=== PATIENT | female | born 1960 | race Caucasian/White ===

== ENCOUNTER 2021-11-05 18:39 | Inpatient (IN) | payer OTHER ==
[~2021-11-05] VITALS: Ht 168 cm; Wt 77.1 kg
[~2021-11-05 18:39] MED LIST changes: -AZIT250; -FLUTICASONE-SA1 EAC1 INH; -GLIP5 PO; -METFORMIN HCL500 M3 PO; -NICOTINE1 EAC1 TOP; -PRED20 PO; -Prednisone10 MG PO
[2021-11-05 20:29] LABS: Influenza A, PCR NEGATIVE (NEGATIVE); Influenza B, PCR NEGATIVE (NEGATIVE); Resp Syncytial Virus, PCR NEGATIVE (NEGATIVE); SARS-Cov-2 (COVID-19) PCR, MMC NEGATIVE (NEGATIVE)
[2021-11-05] MEDS ORDERED: PRED20 PO ×2 (21:12)
[2021-11-05] MEDS ORDERED: Ventolin/Prove6.7 GM INH ×2 (21:13)
[2021-11-05] MEDS ORDERED: AZIT250 ×2 (21:13)
[2021-11-05] MEDS ORDERED: METFORMIN HCL500 M3 PO ×2 (21:13)
[2021-11-06 04:35] LABS: BASOPHILS ABSOLUTE AUTO 0.03 K/mm3 (0.00-0.23); BASOPHILS PERCENT AUTO 1 % (0-2); EOSINOPHILS PERCENT AUTO 0 % (0-6); Hemoglobin 13.3 g/dL (11.5-16.0); Mean Corpuscular HGB 31.2 pg (26.0-34.0); Mean Corpuscular HGB Conc 32.4 g/dL (31.5-36.5); Mean Corpuscular Volume 96 fL (80-100); Mean Platelet Volume 10.7 fL (9.1-12.4); Platelet Count 202 K/mm3 (150-400); RDW Coefficient Variation 11.9 % (11.7-14.2); Red Blood Cell Count 4.26 M/mm3 (3.80-5.20); White Blood Cell Count 5.52 K/mm3 (4.00-11.30)
[2021-11-06 04:45] LABS: IMMATURE GRAN ABSOLUTE AUTO 0.05 K/mm3 (0.00-0.10); IMMATURE GRAN PERCENT AUTO 1 % (0-1); LYMPHOCYTES ABSOLUTE AUTO 1.08 K/mm3 (0.84-5.20); LYMPHOCYTES PERCENT AUTO 20 % (21-46); MONOCYTES ABSOLUTE AUTO 0.09 K/mm3 (0.16-1.47); MONOCYTES PERCENT AUTO 2 % (4-13); NEUTROPHILS ABSOLUTE AUTO 4.27 K/mm3 (1.96-9.15); NEUTROPHILS PERCENT AUTO 77 % (41-73)
[2021-11-06 05:10] LABS: Alanine Aminotransfer (ALT/SGP 30 U/L (12-78); Albumin, Blood 3.5 g/dL (3.4-5.0); Alk Phos 82 U/L (50-136); Anion Gap 4 mmol/L (6-16); Aspartate Aminotrans (AST/SGOT 18 U/L (12-37); Bilirubin, Total 0.3 mg/dL (0.1-1.0); Blood Urea Nitrogen 27 mg/dL (8-24); Bun/Creatinine Ratio 48.3 (12.0-20.0); CO2, Blood 38 mmol/L (21-32); Calcium, Blood 9.4 mg/dL (8.5-10.1); Chloride, Blood 96 mmol/L (98-108); Creatinine, Blood 0.56 mg/dL (0.40-1.00); Globulin, Blood 3.4 g/dL (2.2-4.0); Glomerular Filtration Rate >60 (60-); Glucose, Blood 342 mg/dL (70-99); Potassium, Blood 5.1 mmol/L (3.5-5.5); Sodium, Blood 138 mmol/L (136-145); Total Protein, Blood 6.9 g/dL (6.4-8.2)
--- NOTE | 2021-11-06 06:56 | NUR ---
SHIFT SUMMARY S/P COPD EXACERBATION, A/O X4, VSS, REPORTS SOME IMPROVEMENT TO SOB AT REST BUT INCREASED SOB c AMBULATION, UNABLE TO GET TO RESTROOM SO SHE USED BSC DUE TO SOB WHEN UP. NO ACUTE EVENTS THIS SHIFT. CALL LIGHT IN REACH, WILL CTM AND REPORT TO DAY RN.
--- NOTE | 2021-11-06 15:28 | NUR ---
SHIFT SUMMARY: COPD EXHACERBATION PATIENT IS ALERT AND ORIENTED X4. PATIENT IS ON 3L NC OF OXYGEN RIGHT NOW WITH >88% OXYGEN SATS. PATIENT HAS EXPIRATORY WHEEZES AND IS USING ACCESSORY MUSCLES. ENCOURAGING PATIENT TO USE INCENTIVE SPIROMETER AND FLUTTER VALVE EVERY HOUR WHILE AWAKE. PATIENT BECOMES SOB WITH MOVEMENT AND IF TALKING FOR A LONG PERIOD OF TIME. ALSO ENCOURAGING PATIENT TO TAKE DEEP BREATHS IN BETWEEN BITES AND TALKING. OTHERWISE PATIENT IS VOIDING AND TOLERATING PO. CALLS APPROPRIATELY. CALL LIGHT WITHIN REACH. THE PLAN IS TO CONTINUE RECIEVING RT THERAPY AND IV STERIODS TO DECREASE HER WORK OF BREATHING. ALSO TO ENCOURAGE INCENTIVE SPIROMETER AND FLUTTER.
--- NOTE | 2021-11-07 07:31 | NUR ---
SHIFT SUMMARY S/P COPD EXACERBATION, A/O X4, VSS, TOLERATING DIET, AMBULATES TO BATHROOM c PITSTOP CARE HOME THERE D/T SOB c EXERTION, MARKED INCREASED WORK OF BREATHING ON EXHALATION BUT MINIMAL SOB @ REST, AUDIBLE WHEEZES PREDOMINATEL ON EXHALATION. NO ACUTE EVENTS THIS SHIFT. CALL LIGHT IN REACH, REPORT GIVEN TO DAY RN.
--- NOTE | 2021-11-07 16:54 | NUR ---
SUMMARY: NO CHANGE TODAY. VSS, A/O. PT CONTINUES TO HAVE SOB ON EXERTION AND WHEEZING, PRN AND SCHEDULED ALBUTEROL GIVEN, CURRENTLY USING 3L O2, OXIMETRY IN PLACE. PT REPORTS TRYING TO COUGH UP MUCUS, ABLE TO SHOWER INDEPENDENTLY TODAY. CBG 420 TONIGHT, 5 UNITS OF HUMALOG GIVEN AND 1000MG OF METFORMIN AND DR. BAUTISTA NOTIFIED. NO NEW ORDERS AT THIS TIME. NO SAFETY CONCERNS, WILL CTM AND REPORT TO CARLOS CHILDS.
[2021-11-08 04:02] LABS: BASOPHILS ABSOLUTE AUTO 0.08 K/mm3 (0.00-0.23); BASOPHILS PERCENT AUTO 1 % (0-2); EOSINOPHILS PERCENT AUTO 0 % (0-6); IMMATURE GRAN PERCENT AUTO 4 % (0-1); LYMPHOCYTES ABSOLUTE AUTO 1.84 K/mm3 (0.84-5.20); LYMPHOCYTES PERCENT AUTO 17 % (21-46); MONOCYTES ABSOLUTE AUTO 0.55 K/mm3 (0.16-1.47); MONOCYTES PERCENT AUTO 5 % (4-13); Mean Corpuscular HGB 31.3 pg (26.0-34.0); Mean Corpuscular HGB Conc 33.3 g/dL (31.5-36.5); Mean Corpuscular Volume 94 fL (80-100); Mean Platelet Volume 10.5 fL (9.1-12.4); NEUTROPHILS ABSOLUTE AUTO 7.72 K/mm3 (1.96-9.15); NEUTROPHILS PERCENT AUTO 73 % (41-73); Platelet Count 250 K/mm3 (150-400); RDW Coefficient Variation 11.7 % (11.7-14.2); RDW Standard Deviation 39.9 fL (35.1-46.3); Red Blood Cell Count 4.16 M/mm3 (3.80-5.20); White Blood Cell Count 10.59 K/mm3 (4.00-11.30)
[2021-11-08 04:58] LABS: Anion Gap 9 mmol/L (6-16); Blood Urea Nitrogen 23 mg/dL (8-24); Bun/Creatinine Ratio 42.1 (12.0-20.0); CO2, Blood 32 mmol/L (21-32); Calcium, Blood 9.4 mg/dL (8.5-10.1); Chloride, Blood 95 mmol/L (98-108); Creatinine, Blood 0.55 mg/dL (0.40-1.00); Glomerular Filtration Rate >60 (60-); Glucose, Blood 350 mg/dL (70-99); Potassium, Blood 4.8 mmol/L (3.5-5.5); Sodium, Blood 136 mmol/L (136-145)
--- NOTE | 2021-11-08 06:57 | NUR ---
ALERT AND ORIENTED X'2 4. COUGHING AND DEEP BREATHING THOUGH NIGHT. REACHED 500 ON IS. SLEPT WELL, SAFETY MAINTAINED
[2021-11-08] MEDS ORDERED: METF500 PO ×2 (15:31)
[2021-11-08] MEDS ORDERED: GLIP5 PO ×2 (15:31)
[2021-11-08] MEDS ORDERED: NICOTINE1 EAC1 TOP ×2 (15:32)
[2021-11-08] MEDS ORDERED: FLUTICASONE-SA1 EAC1 INH ×2 (15:34)
[2021-11-08] MEDS ORDERED: Prednisone10 MG PO ×2 (15:34)
--- NOTE | 2021-11-08 16:25 | NUR ---
DISCHARGE: PACKET PRINTED AND PT EDUCATED. MEDS FAXED TO [facility]. IV DC'D WNL. PT TO DC WITH O2, PT STATES THAT SHE HAS 02 AT HOME AND FOR TRANSPORT. LEFT UNIT VIA WHEELCHAIR WITH THIS RN AT 1610
== END 2021-11-08 15:50 | disposition home or self-care (01) | DRG 189 ==
LOC: ER 18:39 → SURS 22:20
PROVIDERS: Internal Medicine; Physician Assistant; Student in an Organized Health Care Education/Training Program; ADMIT Internal Medicine
DX: J96.21 Acute and chronic respiratory failure with hypoxia (principal); J44.1 Chronic obstructive pulmonary disease with (acute) exacerbation; J20.8 Acute bronchitis due to other specified organisms; Z20.822 Contact with and (suspected) exposure to COVID-19; E11.9 Type 2 diabetes mellitus without complications; F32.A Depression, unspecified; E03.9 Hypothyroidism, unspecified; F17.210 Nicotine dependence, cigarettes, uncomplicated; E78.5 Hyperlipidemia, unspecified; Z71.6 Tobacco abuse counseling; Z88.8 Allergy status to other drugs, medicaments and biological substances; Z79.51 Long term (current) use of inhaled steroids; Z79.899 Other long term (current) drug therapy
CPT/HCPCS: 0241U; 36415; 71045; 80048; 80053; 82947; 85025; 93005; 93010; 94640; 94644; 94664; 94762; 96365; 96375; 97110; 97162; 97165; 97530; 97535; 99285-25; A9270; J1650; J2920; J2930; J3475

== ENCOUNTER → 2021-11-05 | Outpatient (CLI) | payer OTHER ==
[~2021-11-05] MED LIST: ALPR.25; AZIT250; Augmentin 875-1 EACH PO; FLUO10 PO; FLUTICASONE-SA1 EAC1 INH; GLIP5 PO; HYDR1TAB94 PO; LEVSOD50 PO; METF500 PO; METFORMIN HCL500 M3 PO; NICOTINE1 EAC1 TOP; PRAV20 PO; PRED20 PO; Prednisone10 MG PO; SITA25T2; Ventolin/Prove6.7 GM INH
[2021-11-05 17:00] LABS: BASOPHILS ABSOLUTE AUTO 0.02 K/mm3 (0.00-0.23); BASOPHILS PERCENT AUTO 0 % (0-2); EOSINOPHILS PERCENT AUTO 0 % (0-6); Hematocrit 44.1 % (33.0-51.0); Hemoglobin 14.4 g/dL (11.5-16.0); IMMATURE GRAN ABSOLUTE AUTO 0.05 K/mm3 (0.00-0.10); IMMATURE GRAN PERCENT AUTO 1 % (0-1); LYMPHOCYTES ABSOLUTE AUTO 1.15 K/mm3 (0.84-5.20); LYMPHOCYTES PERCENT AUTO 17 % (21-46); MONOCYTES ABSOLUTE AUTO 0.13 K/mm3 (0.16-1.47); MONOCYTES PERCENT AUTO 2 % (4-13); Mean Corpuscular HGB Conc 32.7 g/dL (31.5-36.5); Mean Corpuscular Volume 95 fL (80-100); Mean Platelet Volume 10.8 fL (9.1-12.4); NEUTROPHILS PERCENT AUTO 80 % (41-73); Platelet Count 211 K/mm3 (150-400); RDW Coefficient Variation 12.2 % (11.7-14.2); RDW Standard Deviation 42.9 fL (35.1-46.3); Red Blood Cell Count 4.64 M/mm3 (3.80-5.20); White Blood Cell Count 6.85 K/mm3 (4.00-11.30)
[2021-11-05 17:18] LABS: Alanine Aminotransfer (ALT/SGP 36 U/L (12-78); Alk Phos 96 U/L (40-126); Anion Gap 1 mmol/L (6-16); Aspartate Aminotrans (AST/SGOT 26 U/L (12-37); Bilirubin, Total 0.4 mg/dL (0.1-1.0); Blood Urea Nitrogen 23 mg/dL (8-24); Bun/Creatinine Ratio 32.4 (12.0-20.0); CO2, Blood 40 mmol/L (21-32); Calcium, Blood 9.8 mg/dL (8.5-10.1); Chloride, Blood 95 mmol/L (98-108); Creatinine, Blood 0.71 mg/dL (0.40-1.00); Globulin, Blood 4.2 g/dL (2.2-4.0); Glomerular Filtration Rate >60 (60-); Glucose, Blood 299 mg/dL (70-99); Potassium, Blood 5.1 mmol/L (3.5-5.5); Sodium, Blood 136 mmol/L (136-145); Thyroid Stimulating Hormone 0.404 uIU/mL (0.360-4.800); Total Protein, Blood 8.2 g/dL (6.4-8.2)
[2021-11-05 17:23] LABS: Troponin I <0.017 ng/mL (0.000-0.040)
== END ==
LOC: LAB 16:51 → LAB SHORT 16:51
PROVIDERS: Physician Assistant
DX: R06.00 Dyspnea, unspecified (principal); E03.9 Hypothyroidism, unspecified
CPT/HCPCS: 80053; 83880; 84443; 84484; 85025; 85379

== ENCOUNTER 2022-04-14 11:35 | Day surgery (SDC) | payer OTHER ==
[~2022-04-14] VITALS: Ht 162.6 cm; Wt 76.2 kg
[~2022-04-14 11:35] MED LIST changes: +ALOGLIPTIN25 M1 PO; +ALPR.5 PO; +ATROVENT HFA12.9 GM INH; +AZIT250; +BUPR150ER PO; +CYCL10 PO; +FLUTICASONE-SA1 EAC1 INH; +GLIP5 PO; +INCRUSE ELLIPTA INH; +METFORMIN HCL500 M3 PO; +NICOTINE1 EAC1 TOP; +PRED20 PO; +Prednisone10 MG PO; +Prozac20 MG PO; +SYMBICORT 160-4.6 GM INH
== END 2022-04-14 13:45 | disposition home or self-care (01) ==
LOC: ORSCSDS 11:35
PROVIDERS: Internal Medicine Gastroenterology
PROC: 0DBP8ZX Excision of Rectum, Via Natural or Artificial Opening Endoscopic, Diagnostic (ICD-10-PCS; principal; 2022-04-14 13:00)
PROC: 0DBN8ZX Excision of Sigmoid Colon, Via Natural or Artificial Opening Endoscopic, Diagnostic (ICD-10-PCS; principal; 2022-04-14 13:00)
DX: R19.5 Other fecal abnormalities (principal); K58.9 Irritable bowel syndrome, unspecified; Z86.010 Personal history of colon polyps; K63.5 Polyp of colon; K62.1 Rectal polyp; K57.30 Diverticulosis of large intestine without perforation or abscess without bleeding; K64.8 Other hemorrhoids; E11.9 Type 2 diabetes mellitus without complications; Z99.81 Dependence on supplemental oxygen; J44.9 Chronic obstructive pulmonary disease, unspecified; Z87.891 Personal history of nicotine dependence; Z79.899 Other long term (current) drug therapy
CPT/HCPCS: 82947; 88305; J2704; J7120

== ENCOUNTER → 2022-08-30 | Outpatient (CLI) | payer OTHER | END | disposition home or self-care (01) | LOC: LAB SHORT 17:13 → LAB 17:13 | PROVIDERS: Family Medicine | DX: Z01.419 Encounter for gynecological examination (general) (routine) without abnormal findings (principal) | CPT/HCPCS: G0145 ==

== ENCOUNTER → 2025-02-21 | Outpatient (CLI) | payer OTHER ==
[2025-02-22 12:07] LABS: Bacterial Vaginosis PCR Negative (NEGATIVE); Candida Group, PCR NOT DETECTED (NOT DETECT); Candida glabrata-krusei, PCR NOT DETECTED (NOT DETECT)
[2025-02-22 13:35] LABS: Chlamydia Trachomatis Cervix NOT DETECTED (NOT DETECT); Neisseria Gonorrhoea Cervix NOT DETECTED (NOT DETECT)
[2025-02-26 12:10] LABS: HPV HIGH RISK BY TMA Not Detected; HPV SOURCE Cervical
== END | disposition home or self-care (01) ==
LOC: LAB SHORT 16:26 → LAB 16:26
PROVIDERS: Family Medicine
DX: Z01.419 Encounter for gynecological examination (general) (routine) without abnormal findings (principal)
CPT/HCPCS: 81515; 87491; 87591; 87624; G0123